=== PATIENT | male | born 1990 | race African-American/Black ===

== ENCOUNTER 2022-11-12 13:00 | Emergency (ER) | payer BC ==
[~2022-11-12] VITALS: Ht 177.8 cm; Wt 77.1 kg
[2022-11-12] MEDS ORDERED: CYCLOBENZAPRINE HCL 10 MG TABLET ONE (13:25)
[2022-11-12] MEDS ORDERED: HYDROCODONE/APAP 5-325MG TABLET ONE (13:26)
[2022-11-12] MEDS ORDERED: LIDOCAINE 5% PATCH TD ONE ×2 (13:26→13:30)
[2022-11-12] MEDS ORDERED: HYDROCODONE/APAP 5-325MG TABLET PO ONE (13:30)
[2022-11-12] MEDS ORDERED: CYCLOBENZAPRINE HCL 10 MG TABLET PO ONE (13:30)
[2022-11-12] MEDS ORDERED: KETOROLAC TROMETHAMINE 30 MG INJ ONE (15:13)
[2022-11-12 15:14] LABS: *BILIRUBIN,URIN NEGATIVE (NEGATIVE); *BLOOD, URINE NEGATIVE (NEGATIVE); *CLARITY,URINE CLEAR (CLEAR); *COLOR,URINE YELLOW (YELLOW); *KETONES,URINE NEGATIVE (NEGATIVE); *PROTEIN,URINE NEGATIVE (NEGATIVE); *UROBILINOGEN,URINE 0.2 E.U./dl (NORMAL); LEUKOCYTE ESTERASE ,URINE NEGATIVE (NEGATIVE); NITRITE, URINE NEGATIVE (NEGATIVE); UGLUCOSE NEGATIVE (NEGATIVE)
[2022-11-12] MEDS ORDERED: KETOROLAC TROMETHAMINE 30 MG INJ IM ONE (15:30)
[2022-11-12] MEDS ORDERED: HYDR-3980 PO (16:12)
[2022-11-12] MEDS ORDERED: CYCL5TAB PO (16:13)
[2022-11-12 16:28] VITALS: BP 128/69; TEMP 96; O2SAT 98
== END 2022-11-12 16:30 | disposition home or self-care (01) ==
LOC: ER 13:10
DX: S39.012A Strain of muscle, fascia and tendon of lower back, initial encounter (principal); Z79.899 Other long term (current) drug therapy; V43.52XA Car driver injured in collision with other type car in traffic accident, initial encounter; Y93.89 Activity, other specified; Y92.410 Unspecified street and highway as the place of occurrence of the external cause; Y99.8 Other external cause status
CPT/HCPCS: 99284; 81003; 72110; 73521; 73551; 96372; 72170; J1885; A4663